=== PATIENT | female | born 1960 | race Caucasian/White ===

== ENCOUNTER 2018-10-02 14:05 | Inpatient (IN) | payer MEDICAID ==
[~2018-10-02] VITALS: Ht 162.6 cm; Wt 69.9 kg
[2018-10-02] MEDS ORDERED: SODIUM CHLORIDE 0.9% 1,000 ML IV ONE (14:30)
[2018-10-02 14:38] LABS: BASOPHILS % 0.5 % (0.0-2.0); EOSINOPHILS % 1.5 % (0.0-5.0); HEMATOCRIT. 40.8 % (36.0-48.0); HEMOGLOBIN. 13.7 g/dL (12.0-16.0); LYMPHOCYTES % 19.1 % (20.0-50.0); MEAN CORPUSCULAR HEMOGLOBIN 28.3 pg (28.0-32.0); MEAN CORPUSCULAR VOLUME 84.6 fL (81.0-99.0); MEAN PLATELET VOLUME 7.2 fl (7.4-10.4); MONOCYTES % 4.2 % (2.0-8.0); NEUTROPHILS % 74.7 % (40.0-76.0); PLATELET 412 x1000/uL (130-400); RED BLOOD CELL COUNT 4.83 mill/uL (4.2-5.4); RED CELL DISTRIBUTION WIDTH 13.4 % (11.6-14.6)
[2018-10-02 14:40] LABS: CHLORIDE 94 mEq/L (98-107)
[2018-10-02] MEDS ORDERED: CLONIDINE 0.2MG TABLET PO ONE (15:30)
[2018-10-02] MEDS ORDERED: AMLODIPINE 2.5MG TABLET PO ONE (15:30)
[2018-10-02 16:41] LABS: CLARITY URINE CLEAR (CLEAR); COLOR URINE YELLOW (YELLOW); KETONES URINE NEGATIVE (NEGATIVE); LEUKOCYTE ESTERASE URINE NEGATIVE (NEGATIVE); NITRITE URINE NEGATIVE (NEGATIVE); OCCULT BLOOD URINE NEGATIVE (NEGATIVE); PROTEIN URINE NEGATIVE (NEGATIVE); SPECIFIC GRAVITY URINE 1.008 (1.005-1.030); UROBILINOGEN URINE 0.2 E.U./dL (0.2-1.0)
[2018-10-02 16:50] LABS: *AMPHETAMINES SCREEN URINE NEGATIVE (NEGATIVE); *BARBITURATES SCREEN URINE NEGATIVE (NEGATIVE); *BENZODIAZEPINES SCREEN URINE NEGATIVE (NEGATIVE)
[2018-10-02 16:51] LABS: *COCAINE SCREEN URINE NEGATIVE (NEGATIVE); CANNABINOID URINE SCREEN NEGATIVE (NEGATIVE); METHADONE URINE SCREEN NEGATIVE (NEGATIVE); OPIATES URINE SCREEN NEGATIVE (NEGATIVE); PHENCYCLIDINE URINE SCREEN NEGATIVE (NEGATIVE)
[2018-10-02 20:50] VITALS: BP 156/72
[2018-10-02 21:44] VITALS: BP 156/72
[2018-10-02] MEDS ORDERED: CARB200T6 MT (22:26)
[2018-10-02] MEDS ORDERED: DEXTROSE 50% WATER 50ML SYRINGE IV PRN (23:15)
[2018-10-02] MEDS ORDERED: CLONIDINE 0.1MG TABLET PO PRN (23:15)
[2018-10-03] VITALS (8 sets, daily range): BP systolic 131–187; BP diastolic 71–87
[2018-10-03 06:11] LABS: BASOPHILS % 0.6 % (0.0-2.0); EOSINOPHILS % 2.4 % (0.0-5.0); HEMATOCRIT. 36.7 % (36.0-48.0); HEMOGLOBIN. 12.6 g/dL (12.0-16.0); LYMPHOCYTES % 26.4 % (20.0-50.0); MEAN CORPUSCULAR HEMOGLOBIN 28.8 pg (28.0-32.0); MEAN PLATELET VOLUME 7.7 fl (7.4-10.4); MONOCYTES % 7.5 % (2.0-8.0); NEUTROPHILS % 63.1 % (40.0-76.0); PLATELET 366 x1000/uL (130-400); RED BLOOD CELL COUNT 4.37 mill/uL (4.2-5.4); RED CELL DISTRIBUTION WIDTH 13.3 % (11.6-14.6)
[2018-10-03 06:47] LABS: CHLORIDE 99 mEq/L (98-107)
[2018-10-03] MEDS: BLOOD SUGAR DIAGNOSTIC STRIP TEST SCH ×4 (07:01→21:35)
[2018-10-03] MEDS: INSULIN LISPRO 100 UNITS/ML SUBCUT SCH ×4 (07:01→21:00)
[2018-10-03 07:04] LABS: CREATINE KINASE 51 IU/L (26-192)
[2018-10-03 07:05] LABS: CREATINE KINASE MB FRACTION 1.2 ng/mL (0.5-3.6)
[2018-10-03] MEDS: AMLODIPINE 5MG TABLET PO SCH (08:41)
[2018-10-03] MEDS: CARBAMAZEPINE 200MG TABLET PO SCH ×2 (08:41→15:02)
[2018-10-03] MEDS: ENOXAPARIN 40MG/0.4ML SYR SUBCUT SCH (08:41)
[2018-10-03 16:21] LABS: CREATINE KINASE 56 IU/L (26-192)
[2018-10-03 16:22] LABS: CREATINE KINASE MB FRACTION 1.1 ng/mL (0.5-3.6)
[2018-10-03] MEDS: LISINOPRIL 10MG TABLET PO SCH (21:35)
[2018-10-04] VITALS: BP 156/75
[2018-10-04 00:09] LABS: CREATINE KINASE 56 IU/L (26-192)
[2018-10-04 00:10] LABS: CREATINE KINASE MB FRACTION < 1.0 ng/mL (0.5-3.6)
[2018-10-04 04:00] VITALS: BP 144/79
[2018-10-04] MEDS: BLOOD SUGAR DIAGNOSTIC STRIP TEST SCH ×3 (07:12→17:07)
[2018-10-04] MEDS: INSULIN LISPRO 100 UNITS/ML SUBCUT SCH ×3 (07:12→17:15)
[2018-10-04 07:16] LABS: CHLORIDE 97 mEq/L (98-107)
[2018-10-04 07:17] LABS: BASOPHILS % 0.4 % (0.0-2.0); EOSINOPHILS % 2.4 % (0.0-5.0); HEMATOCRIT. 37.9 % (36.0-48.0); HEMOGLOBIN. 12.9 g/dL (12.0-16.0); LYMPHOCYTES % 21.5 % (20.0-50.0); MEAN CORPUSCULAR HEMOGLOBIN 28.7 pg (28.0-32.0); MEAN CORPUSCULAR VOLUME 84.1 fL (81.0-99.0); MEAN PLATELET VOLUME 7.4 fl (7.4-10.4); MONOCYTES % 7.8 % (2.0-8.0); NEUTROPHILS % 67.9 % (40.0-76.0); PLATELET 356 x1000/uL (130-400); RED BLOOD CELL COUNT 4.51 mill/uL (4.2-5.4); RED CELL DISTRIBUTION WIDTH 13.3 % (11.6-14.6)
[2018-10-04 08:00] VITALS: BP_SYST 142; BP_SYST 150; BP_SYST 161; BP_DIAS 72; BP_DIAS 73; BP_DIAS 83
[2018-10-04] MEDS: CARBAMAZEPINE 200MG TABLET PO SCH ×2 (09:21→17:50)
[2018-10-04] MEDS: LISINOPRIL 10MG TABLET PO SCH (09:21)
[2018-10-04] MEDS: AMLODIPINE 5MG TABLET PO SCH (09:22)
[2018-10-04] MEDS: ENOXAPARIN 40MG/0.4ML SYR SUBCUT SCH (09:25)
[2018-10-04 12:00] VITALS: BP_SYST 148; BP_SYST 149; BP_SYST 155; BP_DIAS 68; BP_DIAS 75; BP_DIAS 79
[2018-10-04] MEDS ORDERED: METF-415 MT (14:05)
[2018-10-04 14:41] VITALS: BP 148/72
== END 2018-10-04 18:10 | disposition home or self-care (01) | DRG 204 ==
LOC: ER 14:05 → 5WST 15:57 → ENRESERVDT 19:56 → ENRESERVTM 19:56 → 5WST 21:03 → UNDOADMIN 21:03
PROVIDERS: ADMIT Internal Medicine; ATTEND Internal Medicine
PROC: 4A00X4Z Measurement of Central Nervous Electrical Activity, External Approach (ICD-10-PCS; principal; 2018-10-04)
DX: R55 Syncope and collapse (principal); E11.42 Type 2 diabetes mellitus with diabetic polyneuropathy; R00.2 Palpitations; E87.1 Hypo-osmolality and hyponatremia; F41.9 Anxiety disorder, unspecified; I10 Essential (primary) hypertension; Z82.49 Family history of ischemic heart disease and other diseases of the circulatory system
CPT/HCPCS: 36415; 70544; 70553; 71045; 80048; 80061; 80305; 80320; 81003; 82550; 82553; 82962; 83036; 83735; 83880; 84484; 93005; 93306; 93880; 97161; 97165; 99285; J1650; J7030; G0480